=== PATIENT | female | born 1930 | race Caucasian/White ===

== ENCOUNTER 2017-03-20 12:50 | Inpatient (IN) | payer MEDICARE ==
[~2017-03-20] VITALS: Ht 157.5 cm; Wt 62.4 kg
[~2017-03-20 12:50] MED LIST: CHOL200021 PO; LEVO0.5P PO; LISI10TA2 PO; LOVA10TA PO; MONT10TA6 PO; OMEP20TA62 PO; ONDANSETRON 2MG/ML, 2ML ONE; PROPOFOL 10 MG/ML, 20ML ONE; ROCURONIUM 10 MG/ML ONE; SUCCINYLCHOLINE 20 MG/ML, 10ML ONE
[2017-03-20] MEDS ORDERED: ALBU2.5V NEB (13:50)
[2017-03-20] MEDS ORDERED: FLUT50DI INH (13:50)
[2017-03-20] MEDS ORDERED: atarax PO (13:50)
[2017-03-20] MEDS ORDERED: ALBU90AE INH (13:50)
[2017-03-20] MEDS ORDERED: METO10TA82 PO (13:50)
[2017-03-20] MEDS ORDERED: LACTATED RINGERS 1,000 ML IV SCH (13:52)
[2017-03-20 13:54] VITALS: BP 117/66
[2017-03-20 14:52] LABS: BLOOD UREA NITROGEN 14 mg/dL (7-18)
[2017-03-20] MEDS ORDERED: HYDROmorphone 1 MG/ML, 1ML IV PRN (16:00)
[2017-03-20] MEDS ORDERED: hydrALAzine 20 MG/ML, 1ML IV PRN (16:00)
[2017-03-20] MEDS ORDERED: OXYcodone 5 MG/5 ML ORAL.SOL UDC PO PRN (16:00)
[2017-03-20] MEDS ORDERED: FENTANYL PF 100 MCG/2ML IV PRN (16:00)
[2017-03-20] MEDS ORDERED: ONDANSETRON 2MG/ML, 2ML IVPush PRN (16:00)
[2017-03-20] MEDS ORDERED: LABETALOL 5MG/ML, 20ML IV PRN (16:00)
[2017-03-20] MEDS ORDERED: OMNIPAQUE 350 MG/ML, 50 ML BOTTLE ONE (17:23)
[2017-03-20 17:59] VITALS: BP 123/74
[2017-03-20] MEDS ORDERED: DOCUSATE 100 MG CAPSULE PO PRN (18:00)
[2017-03-20] MEDS ORDERED: POLYETHYLENE GLYCOL 17 GM PACKET PO PRN (18:00)
[2017-03-20] MEDS ORDERED: ACETAMINOPHEN 325 MG TABLET PO PRN (18:00)
[2017-03-20] MEDS ORDERED: BISACODYL 10 MG SUPP PR PRN (18:00)
[2017-03-20] MEDS ORDERED: HYDROcodone/APAP 5/325 TABLET PO PRN (18:00)
[2017-03-20] MEDS: SODIUM CHLORIDE 0.9% 1,000 ML IV SCH (18:14)
[2017-03-20] MEDS: hydrOXyzine 50MG TABLET PO SCH ×2 (18:38→22:07)
[2017-03-20] MEDS: AMPICILLIN/SULBACTAM 1,500 MG in SODIUM CHLORIDE 0.9% 50 ML IV SCH (18:38)
[2017-03-20 20:17] VITALS: BP 105/60
[2017-03-20] MEDS: METOCLOPRAMIDE 10MG TABLET PO PRN (22:07)
[2017-03-21] MEDS ORDERED: ALBUTEROL SULFATE 2.5 MG/3 ML NPPB PRN (02:30)
[2017-03-21] MEDS: AMPICILLIN/SULBACTAM 1,500 MG in SODIUM CHLORIDE 0.9% 50 ML IV SCH ×3 (02:45→20:52)
[2017-03-21] MEDS: SODIUM CHLORIDE 0.9% 1,000 ML IV SCH (02:45)
[2017-03-21] MEDS: hydrOXyzine 50MG TABLET PO SCH ×5 (02:45→20:52)
[2017-03-21 02:56] VITALS: BP 119/60
[2017-03-21 05:00] LABS: BLOOD UREA NITROGEN 15 mg/dL (7-18)
[2017-03-21 05:04] LABS: ASPARTATE AMINO TRANSFERASE 75 U/L (15-37)
[2017-03-21 05:44] LABS: DIFF TOTAL CELLS COUNTED 100 CELL DIFF
[2017-03-21 05:46] LABS: VERIFY COUNTS? YES
[2017-03-21 05:47] LABS: ANISOCYTOSIS 1+; POLYCHROMASIA 1+; TARGET CELLS 1+
[2017-03-21 05:49] LABS: HYPOCHROMIA 1+
[2017-03-21 05:52] LABS: POIKILOCYTOSIS 1+
[2017-03-21 07:21] VITALS: BP 111/65
[2017-03-21] MEDS: OMEPRAZOLE 20 MG CAPSULE.DR PO SCH (09:00)
[2017-03-21] MEDS: LEVOTHYROXINE 25 MCG TABLET PO SCH (09:00)
[2017-03-21] MEDS: MONTELUKAST 10 MG TABLET PO SCH (09:00)
[2017-03-21] MEDS ORDERED: LIDOCAINE 1%, 20ML ONE (12:42)
[2017-03-21] MEDS ORDERED: NALOXONE 1 MG/ML, 2ML ONE (13:07)
[2017-03-21] MEDS ORDERED: FENTANYL PF 100 MCG/2ML ONE (13:07)
[2017-03-21] MEDS ORDERED: MIDAZOLAM 1 MG/ML, 5ML ONE (13:07)
[2017-03-21] MEDS ORDERED: FLUMAZENIL 0.1 MG/1 ML, 5ML ONE (13:07)
[2017-03-21] MEDS ORDERED: VISIPAQUE 270 MG/ML, 50ML BOTTLE ONE (13:55)
[2017-03-21 15:31] VITALS: BP 112/55
[2017-03-21 19:51] VITALS: BP 111/51
[2017-03-22] MEDS: hydrOXyzine 50MG TABLET PO SCH ×6 (01:00→21:31)
[2017-03-22 01:28] VITALS: BP 115/64
[2017-03-22] MEDS: AMPICILLIN/SULBACTAM 1,500 MG in SODIUM CHLORIDE 0.9% 50 ML IV SCH ×2 (04:55→16:51)
[2017-03-22 07:17] VITALS: BP 124/65
[2017-03-22] MEDS: OMEPRAZOLE 20 MG CAPSULE.DR PO SCH (09:00)
[2017-03-22] MEDS: LEVOTHYROXINE 25 MCG TABLET PO SCH (09:00)
[2017-03-22] MEDS: MONTELUKAST 10 MG TABLET PO SCH (09:00)
[2017-03-22] MEDS ORDERED: LIDOCAINE 1%, 20ML ONE (12:25)
[2017-03-22] MEDS ORDERED: MIDAZOLAM 1 MG/ML, 5ML ONE (12:52)
[2017-03-22] MEDS ORDERED: FENTANYL PF 100 MCG/2ML ONE ×2 (12:52→12:53)
[2017-03-22] MEDS ORDERED: FLUMAZENIL 0.1 MG/1 ML, 5ML ONE (12:53)
[2017-03-22] MEDS ORDERED: NALOXONE 1 MG/ML, 2ML ONE (12:53)
[2017-03-22] MEDS ORDERED: VISIPAQUE 270 MG/ML, 50ML BOTTLE ONE (14:01)
[2017-03-22 14:30] VITALS: BP 133/59
[2017-03-22 20:20] VITALS: BP 117/51
[2017-03-22] MEDS ORDERED: MONTELUKAST 10 MG TABLET PO SCH (21:00)
[2017-03-23 00:30] VITALS: BP 122/67
[2017-03-23] MEDS: hydrOXyzine 50MG TABLET PO SCH ×5 (00:49→16:20)
[2017-03-23] MEDS: AMPICILLIN/SULBACTAM 1,500 MG in SODIUM CHLORIDE 0.9% 50 ML IV SCH ×2 (00:49→08:08)
[2017-03-23 08:06] VITALS: BP 118/70
[2017-03-23] MEDS: OMEPRAZOLE 20 MG CAPSULE.DR PO SCH (08:08)
[2017-03-23] MEDS: LEVOTHYROXINE 25 MCG TABLET PO SCH (08:08)
[2017-03-23 14:30] VITALS: BP 149/72
[2017-03-23] MEDS: METOCLOPRAMIDE 10MG TABLET PO PRN (16:20)
== END 2017-03-23 16:20 | disposition home health service (06) | DRG 435 ==
LOC: OUT 12:50 → 3NW 17:44
PROVIDERS: ADMIT Internal Medicine; ATTEND Internal Medicine
PROC: 0F798ZZ Dilation of Common Bile Duct, Via Natural or Artificial Opening Endoscopic (ICD-10-PCS; 2017-03-20)
PROC: BF101ZZ Fluoroscopy of Bile Ducts using Low Osmolar Contrast (ICD-10-PCS; 2017-03-20)
PROC: 0FPB8DZ Removal of Intraluminal Device from Hepatobiliary Duct, Via Natural or Artificial Opening Endoscopic (ICD-10-PCS; principal; 2017-03-20 16:15)
PROC: 0F9930Z Drainage of Common Bile Duct with Drainage Device, Percutaneous Approach (ICD-10-PCS; 2017-03-21)
PROC: 0FJB3ZZ Inspection of Hepatobiliary Duct, Percutaneous Approach (ICD-10-PCS; 2017-03-22)
PROC: BF101ZZ Fluoroscopy of Bile Ducts using Low Osmolar Contrast (ICD-10-PCS; 2017-03-22)
PROC: 0F9930Z Drainage of Common Bile Duct with Drainage Device, Percutaneous Approach (ICD-10-PCS; 2017-03-22)
DX: C22.1 Intrahepatic bile duct carcinoma (principal); E43 Unspecified severe protein-calorie malnutrition; D64.9 Anemia, unspecified; I10 Essential (primary) hypertension; E03.9 Hypothyroidism, unspecified; L29.9 Pruritus, unspecified; J44.9 Chronic obstructive pulmonary disease, unspecified; Z51.5 Encounter for palliative care; Z66 Do not resuscitate; Z82.3 Family history of stroke; Z82.49 Family history of ischemic heart disease and other diseases of the circulatory system; Z90.49 Acquired absence of other specified parts of digestive tract; Z90.710 Acquired absence of both cervix and uterus; Z79.899 Other long term (current) drug therapy; Z88.6 Allergy status to analgesic agent; Z88.1 Allergy status to other antibiotic agents; Z88.8 Allergy status to other drugs, medicaments and biological substances; Z68.25 Body mass index [BMI] 25.0-25.9, adult
CPT/HCPCS: 36415; 47531; 47534; 47538; 74328; 80048; 80053; 82247; 83735; 84100; 85025; 85610; 99156; 99157; C1894; J2250; J2405; J2704; J3010; J3490; Q9966; Q9967; C1729; C1751; C1769; C1876; J0295; J0330; J2310; J7030; J7120

== ENCOUNTER 2017-07-02 14:16 | Inpatient (IN) | payer MEDICARE ==
[~2017-07-02] VITALS: Ht 157.5 cm; Wt 55.7 kg
[~2017-07-02 14:16] MED LIST changes: +ALBU2.5V NEB; +ALBU90AE INH; +FLUT50DI INH; +METO10TA82 PO; -ONDANSETRON 2MG/ML, 2ML ONE; -PROPOFOL 10 MG/ML, 20ML ONE; -ROCURONIUM 10 MG/ML ONE; -SUCCINYLCHOLINE 20 MG/ML, 10ML ONE; +atarax PO
[2017-07-02] MEDS ORDERED: SODIUM CHLORIDE FLUSH 10ML SYR IVF ONE (15:30)
[2017-07-02] MEDS ORDERED: SODIUM CHLORIDE 0.9% 1,000ML IVBOLUS ONE (15:30)
[2017-07-02] MEDS ORDERED: HYDR50TA13 PO (15:44)
[2017-07-02] MEDS ORDERED: GUAI473L20 PO (15:44)
[2017-07-02] MEDS ORDERED: OXYC5CAP4 PO (15:44)
[2017-07-02 16:26] LABS: ASPARTATE AMINO TRANSFERASE 77 U/L (15-37); BLOOD UREA NITROGEN 15 mg/dL (7-18)
[2017-07-02 16:49] LABS: HEMATOCRIT 41.2 % (34.6-47.8); HEMOGLOBIN 13.6 g/dL (11.7-16.4)
[2017-07-02 16:50] LABS: DIFF TOTAL CELLS COUNTED 100 CELL DIFF; WHITE BLOOD COUNT 18.3 x10^3/uL (3.4-10)
[2017-07-02 16:52] LABS: ANISOCYTOSIS 1+; VERIFY COUNTS? YES
[2017-07-02 16:53] LABS: HYPOCHROMIA 1+; POLYCHROMASIA 1+
[2017-07-02] MEDS ORDERED: SODIUM CHLORIDE 0.9% 1,000 ML IV ONE (17:30)
[2017-07-02] MEDS ORDERED: ONDANSETRON 2MG/ML, 2ML IVPush PRN (18:30)
[2017-07-02] MEDS: hydrOXyzine 50MG TABLET PO SCH ×2 (18:30→22:30)
[2017-07-02] MEDS ORDERED: BISACODYL 10 MG SUPP PR PRN (18:30)
[2017-07-02] MEDS ORDERED: POLYETHYLENE GLYCOL 17 GM PACKET PO PRN (18:30)
[2017-07-02 19:10] VITALS: BP 116/70
[2017-07-02] MEDS: PIPERACILLIN/TAZO/PMX 3.375GM 50 ML IV SCH (20:13)
[2017-07-02] MEDS: SODIUM CHLORIDE 0.9% 1,000 ML IV SCH (20:13)
[2017-07-02] MEDS: OXYcodone IR 5MG TABLET PO SCH (21:00)
[2017-07-02] MEDS: METRONIDAZOLE PMX 500MG/100ML 100 ML IV SCH (22:33)
[2017-07-03] MEDS: hydrOXyzine 50MG TABLET PO SCH (00:59)
[2017-07-03 01:27] VITALS: BP 94/59
[2017-07-03] MEDS: OXYcodone IR 5MG TABLET PO SCH ×2 (02:15→20:21)
[2017-07-03] MEDS: PIPERACILLIN/TAZO/PMX 3.375GM 50 ML IV SCH ×4 (02:16→20:20)
[2017-07-03] MEDS ORDERED: hydrOXyzine 50MG TABLET PO PRN (02:30)
[2017-07-03 05:14] LABS: HEMATOCRIT 31.4 % (34.6-47.8); HEMOGLOBIN 10.6 g/dL (11.7-16.4); WHITE BLOOD COUNT 13.8 x10^3/uL (3.4-10)
[2017-07-03 05:17] LABS: BLOOD UREA NITROGEN 16 mg/dL (7-18)
[2017-07-03 05:20] LABS: ASPARTATE AMINO TRANSFERASE 49 U/L (15-37)
[2017-07-03] MEDS: METRONIDAZOLE PMX 500MG/100ML 100 ML IV SCH ×3 (06:26→22:48)
[2017-07-03] MEDS: SODIUM CHLORIDE 0.9% 1,000 ML IV SCH ×2 (06:26→20:20)
[2017-07-03 06:40] VITALS: BP 118/65
[2017-07-03] MEDS: SENNA/DOCUSATE TABLET PO SCH (08:03)
[2017-07-03] MEDS: MONTELUKAST 10 MG TABLET PO SCH (08:03)
[2017-07-03] MEDS ORDERED: NALOXONE 1 MG/ML, 2ML ONE (12:20)
[2017-07-03] MEDS ORDERED: FLUMAZENIL 0.1 MG/1 ML, 5ML ONE (12:20)
[2017-07-03] MEDS ORDERED: MIDAZOLAM 1 MG/ML, 5ML ONE (12:20)
[2017-07-03] MEDS ORDERED: FENTANYL PF 100 MCG/2ML ONE ×2 (12:20)
[2017-07-03] MEDS ORDERED: LIDOCAINE 1%, 20ML ONE (12:31)
[2017-07-03 13:50] VITALS: BP 110/68
[2017-07-03 19:02] VITALS: BP 104/61
[2017-07-04] VITALS (16 sets, daily range): BP systolic 102–132; BP diastolic 58–84
[2017-07-04] MEDS: PIPERACILLIN/TAZO/PMX 3.375GM 50 ML IV SCH ×4 (03:22→19:52)
[2017-07-04] MEDS: METRONIDAZOLE PMX 500MG/100ML 100 ML IV SCH ×3 (05:54→21:50)
[2017-07-04 08:42] LABS: HEMATOCRIT 28.6 % (34.6-47.8); HEMOGLOBIN 9.6 g/dL (11.7-16.4); WHITE BLOOD COUNT 9.7 x10^3/uL (3.4-10)
[2017-07-04] MEDS: SODIUM CHLORIDE 0.9% 1,000 ML IV SCH ×2 (08:50→21:50)
[2017-07-04 08:51] LABS: BLOOD UREA NITROGEN 13 mg/dL (7-18)
[2017-07-04] MEDS: SENNA/DOCUSATE TABLET PO SCH (09:00)
[2017-07-04] MEDS: OXYcodone IR 5MG TABLET PO SCH ×2 (09:00→15:17)
[2017-07-04] MEDS: MONTELUKAST 10 MG TABLET PO SCH (09:00)
[2017-07-04] MEDS ORDERED: LIDOCAINE 1%, 20ML ONE (11:32)
[2017-07-04] MEDS ORDERED: MIDAZOLAM 1 MG/ML, 5ML ONE (13:49)
[2017-07-04] MEDS ORDERED: FENTANYL PF 100 MCG/2ML ONE (13:50)
[2017-07-04] MEDS ORDERED: FLUMAZENIL 0.1 MG/1 ML, 5ML ONE (13:50)
[2017-07-04] MEDS ORDERED: NALOXONE 1 MG/ML, 2ML ONE (13:50)
[2017-07-04] MEDS ORDERED: VISIPAQUE 270 MG/ML, 50ML BOTTLE ONE (15:01)
[2017-07-04] MEDS: MORPHINE SULFATE 4 MG/ML, 1ML IVPush PRN (16:58)
[2017-07-05 01:15] VITALS: BP 108/62
[2017-07-05] MEDS: PIPERACILLIN/TAZO/PMX 3.375GM 50 ML IV SCH ×3 (01:37→13:46)
[2017-07-05] MEDS: MORPHINE SULFATE 4 MG/ML, 1ML IVPush PRN (03:23)
[2017-07-05] MEDS: METRONIDAZOLE PMX 500MG/100ML 100 ML IV SCH ×2 (05:38→13:52)
[2017-07-05 06:31] VITALS: BP 94/45
[2017-07-05] MEDS: OXYcodone IR 5MG TABLET PO SCH (08:15)
[2017-07-05] MEDS: SENNA/DOCUSATE TABLET PO SCH (08:15)
[2017-07-05] MEDS: MONTELUKAST 10 MG TABLET PO SCH (08:15)
[2017-07-05 08:43] LABS: HEMATOCRIT 31.4 % (34.6-47.8); HEMOGLOBIN 10.3 g/dL (11.7-16.4); WHITE BLOOD COUNT 10.9 x10^3/uL (3.4-10)
[2017-07-05 08:56] LABS: ASPARTATE AMINO TRANSFERASE 39 U/L (15-37); BLOOD UREA NITROGEN 12 mg/dL (7-18)
[2017-07-05] MEDS: SODIUM CHLORIDE 0.9% 1,000 ML IV SCH (09:27)
[2017-07-05 12:47] VITALS: BP 122/58
[2017-07-05] MEDS ORDERED: METR500T PO (16:33)
[2017-07-05] MEDS ORDERED: CEFD300C37 PO (16:33)
[2017-07-05] MEDS ORDERED: DOCU-30 PO (16:33)
[2017-07-08 06:48] VITALS: BP 148/78
== END 2017-07-05 18:00 | disposition home health service (06) | DRG 907 ==
LOC: ED 15:13 → EDIP 17:25 → 3NW 18:50
PROVIDERS: ADMIT Internal Medicine; ATTEND Internal Medicine
PROC: 0T9B70Z Drainage of Bladder with Drainage Device, Via Natural or Artificial Opening (ICD-10-PCS; 2017-07-02)
PROC: 0F1 Hepatobiliary System and Pancreas, Bypass (ICD-10-PCS; principal; 2017-07-04)
PROC: 30233L1 Transfusion of Nonautologous Fresh Plasma into Peripheral Vein, Percutaneous Approach (ICD-10-PCS; 2017-07-04)
PROC: 30233K1 Transfusion of Nonautologous Frozen Plasma into Peripheral Vein, Percutaneous Approach (ICD-10-PCS; 2017-07-04)
DX: T85.79XA Infection and inflammatory reaction due to other internal prosthetic devices, implants and grafts, initial encounter (principal); A41.9 Sepsis, unspecified organism; E43 Unspecified severe protein-calorie malnutrition; K83.0 Cholangitis; C22.1 Intrahepatic bile duct carcinoma; K83.1 Obstruction of bile duct; E87.1 Hypo-osmolality and hyponatremia; N28.1 Cyst of kidney, acquired; T85.520A Displacement of bile duct prosthesis, initial encounter; E03.9 Hypothyroidism, unspecified; I10 Essential (primary) hypertension; J45.909 Unspecified asthma, uncomplicated; Z51.5 Encounter for palliative care; Z66 Do not resuscitate; Z77.22 Contact with and (suspected) exposure to environmental tobacco smoke (acute) (chronic); Z82.3 Family history of stroke; Z82.49 Family history of ischemic heart disease and other diseases of the circulatory system; Z85.05 Personal history of malignant neoplasm of liver; Z68.22 Body mass index [BMI] 22.0-22.9, adult; Z88.6 Allergy status to analgesic agent; Z88.8 Allergy status to other drugs, medicaments and biological substances
CPT/HCPCS: 36415; 47534; 71010; 76700; 80048; 80053; 81001; 83605; 83690; 83735; 84145; 85025; 85610; 86850; 86900; 87040; 93005; 96360; 96361; 99156; 99157; C1894; J2250; J2405; J2543; J3010; J3490; Q9966; C1729; C1751; C1769; J2310; J7030; P9017

== ENCOUNTER 2017-08-23 12:15 | Day surgery (SDC) | payer MEDICARE ==
[~2017-08-23 12:15] MED LIST changes: +CEFD300C37 PO; +DOCU-131 PO; +GUAI473L20 PO; +HYDR50TA13 PO; +METR500T PO; +OXYC5CAP2 PO
[2017-08-23 13:09] VITALS: BP 120/74
[2017-08-23] MEDS ORDERED: MIDAZOLAM 1 MG/ML, 5ML ONE (13:41)
[2017-08-23] MEDS ORDERED: FENTANYL PF 100 MCG/2ML ONE ×2 (13:41)
[2017-08-23] MEDS ORDERED: NALOXONE 1 MG/ML, 2ML ONE (13:42)
[2017-08-23] MEDS ORDERED: FLUMAZENIL 0.1 MG/1 ML, 5ML ONE (13:42)
== END 2017-08-23 16:00 ==
LOC: OUT 12:15
PROVIDERS: ATTEND Internal Medicine Geriatric Medicine
DX: C22.1 Intrahepatic bile duct carcinoma (principal); J45.909 Unspecified asthma, uncomplicated; E03.9 Hypothyroidism, unspecified; I10 Essential (primary) hypertension; Z88.8 Allergy status to other drugs, medicaments and biological substances
CPT/HCPCS: 36415; 47531; 47536; 85610; C1729; C1751; C1769; J3010; J2250; J2310